=== PATIENT | male | born 2000 | race African-American/Black ===

== ENCOUNTER 2020-02-01 11:04 | Emergency (ER) | payer OTHER, BC ==
[~2020-02-01] VITALS: Ht 188 cm; Wt 83.9 kg
[2020-02-01 11:06] VITALS: BP 110/68
[2020-02-01] MEDS ORDERED: DiphenhydrAMINE 50mg/ml Inj IVP ONE (11:45)
[2020-02-01] MEDS ORDERED: Solu-MEDROL 125mg Inj IVP ONE (11:45)
--- NOTE | 2020-02-01 12:28 | Emergency Room Report ---
History of Present Illness General Chief Complaint: Allergic Reaction Source: Patient, EMS Present Illness HPI Patient brought by EMS after ingesting a protein and Isaac drink and having throat swelling, vomiting, weakness and some nasal congestion. He has never had a reaction like this before. Patient does have a history of asthma. Paramedics assessed the patient to have an allergic reaction. No treatment was instituted. Vital signs were stable in the field. The patient denies wheezing. Patient denies pain at this time. The patient denies being exposed to COVID-19. He denies any hives or urticaria. No chest pain, palpitations, diarrhea, dysuria, abdominal pain, joint pain, rashes, depression, anxiety, visual changes, headache. Allergies: Coded Allergies: PENICILLINS (Verified Allergy, Unknown, 02/01/20) COVID-19 Screening Contact w/high risk pt: No Experienced COVID-19 symptoms?: No COVID-19 Testing performed DRAFTER TOPOGRAPHICAL: No Patient History Past Medical History: see triage record Social History: Denies: smoking Social History Narrative Student Reviewed Nursing Documentation: PMH: Agreed; PSxH: Agreed Nursing Documentation-PMH Past Medical History: No History, Except For Hx Asthma: Yes Review of Systems All Other Systems: negative except mentioned in HPI Physical Exam Vital Signs Date Time Temp Pulse Resp B/P (MAP) Pulse Ox O2 Delivery O2 Flow Rate FiO2 02/01/20 11:01 98.6 90 18 110/68 (82) 100 Room Air Sp02 EP Interpretation: reviewed, normal General Appearance: well appearing, no apparent distress, GCS 15, non-toxic Head: normocephalic Eyes: bilateral eye normal inspection, bilateral eye PERRL, bilateral eye EOMI ENT: moist mucus membranes, other - Slight swelling of the right tonsil no angioedema Neck: supple, other - No stridor Respiratory: chest non-tender, lungs clear, normal breath sounds Cardiovascular #1: regular rate, rhythm, no edema Cardiovascular #2: 2+ radial (R) Gastrointestinal: normal inspection, normal bowel sounds, non tender, no mass, non-distended Musculoskeletal: back normal, normal range of motion, gait/station normal Neurologic: alert, oriented x3, grossly normal Psychiatric: mood/affect normal - Slightly anxious Skin: no rash, warm/dry Medical Decision Making Diagnostic Impression: Primary Impression: Allergic reaction Qualified Codes: T78.40XA - Allergy, unspecified, initial encounter ER Course Patient presents with throat swelling and vomiting after ingestion of new food source. Differential includes allergic reaction, anaphylaxis, upper respiratory infection, anxiety, asthma amongst others. Patient initially refused treatment. After discussion of the findings of the throat swelling he agreed to treatment. Patient treated with IV Solu-Medrol and Benadryl. Observation indicated. Patient is not hypotensive. Patient improved after Solu-Medrol and Benadryl. Swelling in the throat is somewhat improved. No respiratory distress and vital signs of remained stable. Discussed findings with patient and most probable diagnosis. Discussed use of EpiPen. Discussed the importance of follow-up with his own physicians. Patient stable for outpatient observation and treatment. Last Vital Signs Date Time Temp Pulse Resp B/P (MAP) Pulse Ox O2 Delivery O2 Flow Rate FiO2 02/01/20 12:40 98.2 81 17 112/74 98 Room Air Status: improved Disposition: HOME, SELF-CARE Condition: Improved Scripts Diphenhydramine Hcl (BENADRYL ALLERGY) 25 Mg Tablet 25 MG PO Q6HR, #10 TAB Prov: Krishna Langston MD 02/01/20 Prednisone* (PREDNISONE*) 20 Mg Tablet 20 MG ORAL DAILY, #3 TAB Prov: Krishna Langston MD 02/01/20 Epinephrine (Epipen 2-Hollis) 0.3 Mg/0.3 Ml Auto.injct 0.3 MG IM NEEDED, #1 EA 1 Refill Prov: Krishna Langston MD 02/01/20 Krishna Langston MD Feb 01, 2020 12:28
[2020-02-01] MEDS ORDERED: PREDNISONE20 MG ORAL (12:31)
[2020-02-01] MEDS ORDERED: BENADRYL ALLERG25 M1 PO (12:31)
[2020-02-01] MEDS ORDERED: EPIPEN 2-P0.3 MG/0.3 IM (12:31)
[2020-02-01 12:40] VITALS: BP 112/74
== END 2020-02-01 12:40 | disposition home or self-care (01) ==
LOC: EDBD 11:04 → EMR 12:30
DX: T78.40XA Allergy, unspecified, initial encounter (principal); X58.XXXA Exposure to other specified factors, initial encounter; Y92.9 Unspecified place or not applicable; Z88.0 Allergy status to penicillin
CPT/HCPCS: 96374; 96375; 99284; J1200; J2930